=== PATIENT | male | born 1960 | race Caucasian/White ===

== ENCOUNTER 2016-03-20 14:43 | Emergency (ER) | payer OTHER ==
[2016-03-20 16:40] VITALS: BP 162/87
--- NOTE | 2016-03-20 17:10 | UC ---
Laceration HPI - HPI Summary HPI Summary: While playing basketball, hit or scratched on L scalp and bled a lot starting 2.5 hours ago. Denies LOC, vomiting, dizziness, or headache. Not taking blood thinners. - History Of Current Complaint Chief Complaint: UCLaceration Stated Complaint: HEAD LACERATION Time Seen by Provider: 03/20/16 16:58 Hx Obtained From: Patient Laceration Location: Head Mechanism Of Injury: Blunt Trauma Onset/Duration: Sudden Onset Severity: Mild - Allergies/Home Medications Allergies/Adverse Reactions: Allergies Allergy/AdvReac Type Severity Reaction Status Date / Time Pollen Extract Allergy Intermediate itchy Verified 03/20/16 16:40 eyes, sneezing Clindamycin Allergy Diarrhea Verified 03/20/16 16:40 cats Allergy Intermediate itchy Uncoded 12/19/14 17:30 eyes, sneezing Home Medications: Home Medications Fexofenadine (NF) [Clover (NF)] 03/20/16 [History] PMH/Surg Hx/FS Hx/Imm Hx Previously Healthy: Yes Endocrine History Of: Denies: Diabetes, Thyroid Disease Cardiovascular History Of: Denies: Cardiac Disorders, Hypertension Respiratory History Of: Denies: COPD, Asthma GI/ History Of: Denies: Ulcer - Surgical History Surgical History: Yes Surgery Procedure, Year, and Place: HERNIA REPAIR - Family History Known Family History: Positive: Hypertension - Social History Occupation: Employed Full-time Alcohol Use: None Substance Use Type: None Smoking Status (MU): Never Smoked Tobacco Type: Cigarettes Have You Smoked in the Last Year: No When Did the Patient Quit Smoking/Using Tobacco: 2008 - Immunization History Most Recent Tetanus Shot: UNSURE Review of Systems Constitutional: Negative Skin: Other - L scalp lac Eyes: Negative ENT: Negative Respiratory: Negative Cardiovascular: Negative Gastrointestinal: Negative Genitourinary: Negative Motor: Negative Neurovascular: Negative Musculoskeletal: Negative Neurological: Negative Psychological: Negative All Other Systems Reviewed And Are Negative: Yes Physical Exam Triage Information Reviewed: Yes Appearance: Well-Appearing, No Pain Distress, Well-Nourished Vital Signs: Initial Vital Signs Temp 98.2 F 03/20/16 16:37 Pulse 61 03/20/16 16:37 Resp 16 03/20/16 16:37 BP 162/87 03/20/16 16:37 Pulse Ox 100 03/20/16 16:37 Vital Signs Reviewed: Yes Eye Exam: Normal Eyes: Positive: Conjunctiva Clear ENT Exam: Normal ENT: Positive: Normal ENT inspection, Hearing grossly normal, Pharynx normal, TMs normal Dental Exam: Normal Neck exam: Normal Neck: Positive: Supple, Nontender, No Lymphadenopathy Respiratory Exam: Normal Respiratory: Positive: Chest non-tender, Lungs clear, Normal breath sounds, No respiratory distress, No accessory muscle use Cardiovascular Exam: Normal Cardiovascular: Positive: RRR, No Murmur Musculoskeletal Exam: Normal Neurological Exam: Normal Psychological Exam: Normal Skin Exam: Other - 1.25cm curved lac L scalp oozing blood Laceration Course/Dx - Course/Dx Course Of Treatment: Discussed putting in one staple versus allowing area to heal on its own. Pt wants to do "whatever is simpler" and is not bothered by a bit of oozing blood tonight. He understands he can return if he suspects a problem, but probably repair cannot happen after tonight. - Differential Dx - Laceration/Wound Provider Diagnoses: Head laceration, no repair Discharge - Discharge Plan Condition: Stable Disposition: HOME Referrals: Izaiah Troy MD [Primary Care Provider] - If Needed Additional Instructions: Because the cut on your head is short and well-aligned, it should heal well without a problem. Please come back if you have increasing redness, profuse bleeding, or suspect another problem.
== END 2016-03-20 17:51 | disposition home or self-care (01) ==
LOC: UCEAST 14:43
DX: S01.01XA Laceration without foreign body of scalp, initial encounter (principal); W50.0XXA Accidental hit or strike by another person, initial encounter; Y93.67 Activity, basketball; Y92.310 Basketball court as the place of occurrence of the external cause; Z88.1 Allergy status to other antibiotic agents; Z87.891 Personal history of nicotine dependence
CPT/HCPCS: 99211; G0463

== ENCOUNTER 2017-05-19 10:23 | Emergency (ER) | payer OTHER ==
[2017-05-19 10:35] VITALS: BP 137/68
--- NOTE | 2017-05-19 10:51 | UC ---
UC Dental HPI - History of Current Complaint Chief Complaint: UCDentalProblem Stated Complaint: TOOTH ACHE Hx Obtained From: Patient Onset/Duration: Gradual Onset - started last week with R lower toothache-did see DDS who Rx'd PenVK-no better, has gotten worse since 3 days ago. no swelling or drainage. worse if eating Severity: Moderate Pain Intensity: 5 Aggravating Factor(s): Heat, Cold, Chewing Alleviating Factor(s): Nothing - tried tylenol without relief - Allergies/Home Medications Allergies/Adverse Reactions: Allergies Allergy/AdvReac Type Severity Reaction Status Date / Time clindamycin Allergy diarhea Verified 05/19/17 10:28 cats Allergy watery Uncoded 05/19/17 10:29 eyes sneezing pollen Allergy Sneezing Uncoded 05/19/17 10:29 Home Medications: Home Medications ALPRAZolam TAB* [Xanax TAB*] 0.25 mg PO DAILY 05/19/17 [History Confirmed ] PMH/Surg Hx/FS Hx/Imm Hx Previously Healthy: Yes Psychological History: Anxiety - Surgical History Surgical History: Yes Surgery Procedure, Year, and Place: HERNIA REPAIR - Family History Known Family History: Positive: Hypertension - Social History Occupation: Employed Full-time - [employer] Lives: With Family Alcohol Use: None Substance Use Type: None Smoking Status (MU): Never Smoked Tobacco Type: Cigarettes Have You Smoked in the Last Year: No When Did the Patient Quit Smoking/Using Tobacco: 2008 - Immunization History Most Recent Tetanus Shot: UNSURE Review of Systems Constitutional: Negative ENT: Dental Pain Respiratory: Negative Cardiovascular: Negative Gastrointestinal: Negative Neurological: Negative Psychological: Negative Is Patient Immunocompromised?: No All Other Systems Reviewed And Are Negative: Yes Physical Exam Triage Information Reviewed: Yes Appearance: Well-Appearing, Well-Nourished Vital Signs: Initial Vital Signs Temp 96.5 F 05/19/17 10:32 Pulse 61 05/19/17 10:32 Resp 16 05/19/17 10:32 BP 137/68 05/19/17 10:32 Pulse Ox 100 05/19/17 10:32 Vital Signs Reviewed: Yes ENT: Positive: Pharynx normal, Dental tenderness - R lower lateral incisor Dental: Positive: Percussion Tenderness @ - R lower lat incisor. Negative: Gross Decay/Caries @, Abscess @, Cervical Lymphadenopathy Neck exam: Normal Neck: Positive: Supple Respiratory Exam: Normal Cardiovascular Exam: Normal Musculoskeletal Exam: Normal Neurological Exam: Normal Psychological Exam: Other - anxious, crying when reporting pain Skin Exam: Normal Skin: Negative: rashes Dental Complaint Course/Dx - Differential Dx/Diagnosis Differential Diagnosis/Dx: Dental Abscess, Dental Caries, Fractured Tooth, Gingivitis, TMJ Syndrome Provider Diagnoses: Dental pain Discharge - Discharge Plan Condition: Stable Disposition: HOME Prescriptions: DOXYcycline CAP(*) [DOXYcycline 100MG CAP(*)] 100 mg PO BID #20 cap Ibuprofen 600 mg PO Q6HR PRN #30 tablet PRN Reason: Pain Patient Education Materials: Toothache (ED) Referrals: Izaiah Troy MD [Primary Care Provider] - Additional Instructions: Stop the penicillin antibiotic and start doxycycline antibiotic Use the ibuprofen 600mg as directed for pain- take with food See you dentist next week to recheck sore tooth
[2017-05-19] MEDS ORDERED: Ibuprofen TAB* 600 MG PO ONE (10:59)
== END 2017-05-19 11:23 | disposition home or self-care (01) ==
LOC: UCEAST 10:23
DX: K08.89 Other specified disorders of teeth and supporting structures (principal); Z87.891 Personal history of nicotine dependence; F41.9 Anxiety disorder, unspecified
CPT/HCPCS: 99212; A9270-GY; G0463

== ENCOUNTER 2017-09-24 11:08 | Emergency (ER) | payer OTHER ==
[2017-09-24 11:38] VITALS: BP 133/89
--- NOTE | 2017-09-24 11:50 | UC ---
Abdominal Pain Male HPI - HPI Summary HPI Summary: 57 yo male presents with abdominal pain for the last 2 months. He tells me that 2 months ago he was seen for dental pain and prescribed an antibiotic. After finishing this anbx he had abdominal pain and diarrhea. He saw his PCP who ordered labwork and stool cultures which were all negative per pt. Since that time his abdominal pain has been epigastric/umbilical and dull ache/cramp in nature. He saw his PCP again who referred him to GI and they did a colonoscopy which was normal per pt. He is scheduled for an MRI and more bloodwork in 2 days , but came here today because for the past 2 days he feels his pain is worsening. He is eating less due to nausea, but this has been intermittent for the last 2 months. Does not change with position or with/without food. Currently denies fever, chills, SOB, chest pain, vomiting, or diarrhea. - History of Current Complaint Chief Complaint: UCGI Stated Complaint: ABD PAIN Time Seen by Provider: 09/24/17 11:49 Hx Obtained From: Patient Onset/Duration: Gradual Onset Severity Initially: Severe Severity Currently: Severe Pain Intensity: 8 Pain Scale Used: 0-10 Numeric - Allergies/Home Medications Allergies/Adverse Reactions: Allergies Allergy/AdvReac Type Severity Reaction Status Date / Time clindamycin AdvReac diarhea Verified 09/24/17 11:24 cats Allergy watery Uncoded 09/24/17 11:24 eyes sneezing pollen Allergy Sneezing Uncoded 09/24/17 11:24 Home Medications: Home Medications Bismuth Subsalicylate [Pepto-Bismol Max Strength] 525 mg PO ONCE 09/24/17 [ History Confirmed 09/24/17] PMH/Surg Hx/FS Hx/Imm Hx - Additional Past Medical History Additional PMH: None Previously Healthy: Yes - Surgical History Surgical History: Yes Surgery Procedure, Year, and Place: umbilical HERNIA REPAIR - 2012 - Family History Known Family History: Positive: Hypertension - Social History Occupation: Employed Full-time Lives: With Family Alcohol Use: None Substance Use Type: None Smoking Status (MU): Never Smoked Tobacco Type: Cigarettes Have You Smoked in the Last Year: No When Did the Patient Quit Smoking/Using Tobacco: 2008 - Immunization History Most Recent Tetanus Shot: UNSURE Review of Systems Constitutional: Negative Skin: Negative Respiratory: Negative Cardiovascular: Negative Gastrointestinal: Abdominal Pain, Nausea Genitourinary: Negative Neurovascular: Negative Neurological: Negative Psychological: Negative All Other Systems Reviewed And Are Negative: Yes Physical Exam - Summary Physical Exam Summary: GENERAL: NAD. WDWN. No pain distress. Lying on his back with his hands behind his head on the exam table. SKIN: No rashes, sores, lesions, or open wounds. NECK: Supple. Nontender. No lymphadenopathy. CHEST: CTAB. No r/r/w. No accessory muscle use. Breathing comfortably and in no distress. CV: RRR. Without m/r/g. Pulses intact. Brisk cap refill. ABDOMEN: Mild TTP just superior to the umbilicus. Soft. No distention or guarding. No organomegaly. No CVA tenderness. Bowel sounds present NEURO: Alert. PSYCH: Age appropriate behavior. Triage Information Reviewed: Yes Vital Signs: Initial Vital Signs Temp 98.3 F 09/24/17 11:26 Pulse 51 09/24/17 11:26 Resp 18 09/24/17 11:26 BP 133/89 09/24/17 11:26 Pulse Ox 100 09/24/17 11:26 Abd Pain Male Course/Dx - Course Course Of Treatment: Pt is afebrile and appears nontoxic. I am unsure the cause of his ongoing abdominal pain. Advised that if it gets worse or if he has new symptoms - to go to the ED. In the meantime will rx for Zofran and have him f/u as scheduled in 2 days for his MRI and bloodword his PCP ordered for this issue. Pt was agreeable to this - Differential Dx/Clinical Impression Provider Diagnoses: Abdominal pain Discharge - Sign-Out/Discharge Documenting (check all that apply): Discharge/Admit/Transfer - Discharge Plan Condition: Stable Disposition: HOME Prescriptions: Ondansetron ODT TAB* [Zofran 4 MG Odt TAB*] 4 mg PO Q8H PRN #12 tab.odt PRN Reason: Nausea Patient Education Materials: Abdominal Pain (ED) Referrals: Izaiah Troy MD [Primary Care Provider] - Additional Instructions: If you develop a fever, shortness of breath, chest pain, new or worsening symptoms - please call your PCP or go to the ED. 1) Please keep your follow up appoint with GI and your Primary doctor as well as your upcoming scheduled tests - Billing Disposition and Condition Condition: STABLE Disposition: Home
== END 2017-09-24 12:05 | disposition home or self-care (01) ==
LOC: UCEAST 11:08
DX: R10.33 Periumbilical pain (principal); R11.0 Nausea; Z88.1 Allergy status to other antibiotic agents; Z82.49 Family history of ischemic heart disease and other diseases of the circulatory system
CPT/HCPCS: 99212; G0463

== ENCOUNTER 2018-12-23 15:12 | Emergency (ER) | payer OTHER ==
[2018-12-23 15:38] VITALS: BP 152/104
--- NOTE | 2018-12-23 15:53 | UC ---
Knee Pain HPI - HPI Summary HPI Summary: Patient is a 58yo male presenting with chronic left knee pain that has worsened since Sunday when he played basketball and Sunday when he was bending down at work all day. Patient states the pain does not radiate. Denies decreased strength and ROM. Notes walking and other physical activity worsens the pain. Patient has used ice, tylenol, and ibuprofen for pain relief. States ice works but ibuprofen has not helped much. Patient denies history of injury or surgery to left knee. Denies any trauma. Notes pain is better at rest. Denies any numbness and tingling. Denies bruising and swelling. - History of Current Complaint Chief Complaint: UCLowerExtremity Stated Complaint: KNEE PAIN Hx Obtained From: Patient Onset/Duration: Gradual Onset, Worse Since - last week Severity Currently: Severe Pain Intensity: 10 Pain Scale Used: 0-10 Numeric Alleviating Factor(s): Rest - Allergies/Home Medications Allergies/Adverse Reactions: Allergies Allergy/AdvReac Type Severity Reaction Status Date / Time clindamycin AdvReac diarhea Verified 12/23/18 15:31 cats Allergy watery Uncoded 12/23/18 15:31 eyes sneezing pollen Allergy Sneezing Uncoded 12/23/18 15:31 Home Medications: Home Medications Acetaminophen [Tylenol Extra Strength] 1,000 mg PO Q12HR PRN 12/23/18 [History Confirmed 12/23/18] PMH/Surg Hx/FS Hx/Imm Hx Previously Healthy: Yes - Surgical History Surgical History: Yes Surgery Procedure, Year, and Place: umbilical HERNIA REPAIR - 2012 - Family History Known Family History: Positive: Hypertension - Social History Alcohol Use: None Substance Use Type: None Smoking Status (MU): Never Smoked Tobacco Type: Cigarettes Have You Smoked in the Last Year: No When Did the Patient Quit Smoking/Using Tobacco: 2008 - Immunization History Most Recent Tetanus Shot: UNSURE Review of Systems All Other Systems Reviewed And Are Negative: Yes Constitutional: Positive: Negative Skin: Positive: Negative. Negative: Bruising ENT: Positive: Negative Respiratory: Positive: Negative Cardiovascular: Positive: Negative Motor: Positive: Negative. Negative: Decreased ROM, Weakness Neurovascular: Positive: Negative. Negative: Decreased Sensation, Decreased Pulses Musculoskeletal: Positive: Arthralgia. Negative: Calf Tenderness, Decreased ROM , Edema, Myalgia Neurological: Positive: Negative. Negative: Paresthesia, Numbness Physical Exam Triage Information Reviewed: Yes Appearance: Well-Appearing, No Pain Distress, Well-Nourished Vital Signs: Initial Vital Signs Temp 99.4 F 12/23/18 15:32 Pulse 57 12/23/18 15:32 Resp 18 12/23/18 15:32 BP 152/104 12/23/18 15:32 Pulse Ox 100 12/23/18 15:32 Vital Signs Reviewed: Yes Eyes: Positive: Conjunctiva Clear ENT: Positive: Hearing grossly normal Neck: Positive: Supple Respiratory: Positive: No respiratory distress Cardiovascular: Positive: Pulses Normal, Brisk Capillary Refill Musculoskeletal Exam: Normal Musculoskeletal: Positive: Strength Intact, ROM Intact, No Edema, Other: - no tenderness to palpation of left knee, thigh, or lower leg. Patient ambulating with minimal pain. no limping noted. Neurological Exam: Other - sensation grossly intact Neurological: Positive: Alert Psychological: Positive: Age Appropriate Behavior Skin Exam: Normal Skin: Positive: Other - no erythema or edema of left knee noted on exam Diagnostics - Radiology left knee xray Radiology Interpretation Completed By: Radiologist Summary of Radiographic Findings: IMPRESSION: Degenerative changes medial compartment left knee. Knee Pain Course/Dx - Course Course Of Treatment: Discussed degenerative changes found on xray with patient. Discussed with patient that he will need further evaluation and he should follow up with the orthopedic referral given. I prescribed naproxen for pain relief and instructed him not to take ibuprofen while taking naproxen. He can continue ice, rest, and elevation. Instructed him to also refrain from strenuous activity that worsens his pain. Patient voiced understanding and agreed to the treatment plan. - Differential Dx/Diagnosis Provider Diagnosis: Degenerative joint disease of left knee Discharge ED - Sign-Out/Discharge Documenting (check all that apply): Patient Departure All imaging exams completed and their final reports reviewed: Yes - Discharge Plan Condition: Stable Disposition: HOME Prescriptions: Naproxen TAB* [Naprosyn 250 mg TAB*] 500 mg PO Q8H PRN #60 tab PRN Reason: Pain - Moderate Patient Education Materials: Arthritis (ED) Referrals: Izaiah Troy MD [Primary Care Provider] - If Needed Additional Instructions: As discussed, the xrays of the knee did show degenerative changes in your left knee. You may take naproxen as prescribed for relief of your knee pain. Use rest, ice, elevation, and compression to help relieve pain. You may also use tylenol as directed for pain. Do not take ibuprofen if you are taking the naproxen. Follow up with your PCP or orthopedics as listed below. - Billing Disposition and Condition Condition: STABLE Disposition: Home - Attestation Statements Provider Attestation: Per institutional requirements, I have reviewed the chart, however, I was not consulted specifically or made aware of this patient by the midlevel provider. I did not personally evaluate, interact with , or disposition this patient.
== END 2018-12-23 16:33 | disposition home or self-care (01) ==
LOC: UCEAST 15:12
DX: M17.12 Unilateral primary osteoarthritis, left knee (principal); Z88.1 Allergy status to other antibiotic agents; Z91.09 Other allergy status, other than to drugs and biological substances
CPT/HCPCS: 99212; G0463